=== PATIENT | female | born 1960 | race Two or more races ===

== ENCOUNTER 2017-05-06 11:33 | Emergency (ER) | payer MEDICAID ==
[~2017-05-06] VITALS: Ht 157.5 cm; Wt 59.0 kg
[2017-05-06 12:00] VITALS: BP 146/74
--- NOTE | 2017-05-06 12:24 | Emergency Room Report ---
History of Present Illness General Chief Complaint: Pain Source: Patient Present Illness HPI 56-year-old female presents to the emergency department complaining of 10 out of 10 in severity localized right-sided lower jaw pain progressive 3 days. Patient status post wisdom tooth extraction on Tuesday. Patient denies fevers or chills she reports she has been utilizing warm compresses HER symptoms become worse. Patient states she's been taking Advil and was given antibiotics prior to procedure. Patient states that she has a previous history of nerve pain on the right side of her jaw and was given carbamazepine in the past. Patient states that she still has some carbamazepine however she does not take it. Patient states that the dentist believe that her wisdom tooth is causing her right-sided mouth pain and recommended that she have tooth extraction. Patient states pain is exacerbated upon opening her mouth or after talking. Denies CP, Palpitations, LOC, AMS, dizziness, Changes in Vision, Sensation, paresthesias, or a sudden severe headache. Allergies: Coded Allergies: No Known Allergies (Unverified , 05/06/17) Patient History Past Medical History: see triage record Past Surgical History: none Pertinent Family History: none, unable to obtain Immunizations: UTD Reviewed Nursing Documentation: PMH: Agreed, PSxH: Agreed Nursing Documentation-PMH Past Medical History: No History, Except For Hx Hypertension: Yes Hx Asthma: Yes Review of Systems All Other Systems: negative except mentioned in HPI Physical Exam Vital Signs Date Time Temp Pulse Resp B/P (MAP) Pulse Ox O2 Delivery O2 Flow Rate FiO2 05/06/17 11:37 97.7 53 18 146/74 96 Room Air 97.7 Sp02 EP Interpretation: reviewed, normal General Appearance: alert, GCS 15, non-toxic, mild distress Head: normocephalic, atraumatic ENT: hearing grossly normal, normal voice, TMs + canals normal, uvula midline, moist mucus membranes, other - swelling to the the lower right jawline. right lower third molar has been extracted, no evidence of dry socket. Neck: full range of motion Respiratory: lungs clear, normal breath sounds, speaking full sentences Cardiovascular #1: regular rate, rhythm Musculoskeletal: back normal, gait/station normal, normal range of motion, non- tender Neurologic: alert, oriented x3, responsive, motor strength/tone normal, sensory intact, normal gait, speech normal, grossly normal Psychiatric: judgement/insight normal Skin: normal color, no rash, warm/dry, well hydrated Lymphatic: no adenopathy Medical Decision Making PA Attestation Dr. Branch is my supervising Physician whom patient management has been discussed with. Diagnostic Impression: Primary Impression: Pain, dental Additional Impression: S/P wisdom tooth extraction ER Course 56-year-old female presents to the emergency department complaining of 10 out of 10 in severity localized right-sided lower jaw pain progressive 3 days. Patient status post wisdom tooth extraction on Tuesday. Patient denies fevers or chills she reports she has been utilizing warm compresses HER symptoms become worse. Patient states she's been taking Advil and was given antibiotics prior to procedure. Patient states that she has a previous history of nerve pain on the right side of her jaw and was given carbamazepine in the past. Patient states that she still has some carbamazepine however she does not take it. Patient states that the dentist believe that her wisdom tooth is causing her right-sided mouth pain and recommended that she have tooth extraction. Patient states pain is exacerbated upon opening her mouth or after talking. Denies CP, Palpitations, LOC, AMS, dizziness, Changes in Vision, Sensation, paresthesias, or a sudden severe headache. Ddx considered but are not limited to cellulitis, dental abscess, orbital cellulitis, d/l tooth, dental pain. dry socket, trigeminal neuralgia, hematoma just to name a few. Vital signs: are WNL, pt. is afebrile H&PE are most consistent with right lower jaw soft tissue hematoma following tooth extraction. mild-moderate swelling noted. no bruising. no evidence of dry socket. ORDERS: none required at this time, the diagnosis is clinical ED INTERVENTIONS: None required at this time. -Percocet -Toradol DISCHARGE: At this time pt. is stable for d/c to home. Will provide printed patient care instructions, and any necessary prescriptions. Care plan and follow up instructions have been discussed with the patient prior to discharge. Last Vital Signs Date Time Temp Pulse Resp B/P (MAP) Pulse Ox O2 Delivery O2 Flow Rate FiO2 05/06/17 11:37 97.7 53 18 146/74 96 Room Air 97.7 Disposition: HOME, SELF-CARE Condition: Stable Scripts Amoxicillin/Potassium Clav 875-125* (AUGMENTIN 875-125 TABLET*) 1 Each Tablet 1 TAB ORAL TWICE A DAY for 7 Days, #14 TAB Prov: Melodie Lucas 05/06/17 Oxycodone/Acetaminophen 5-325* (PERCOCET 5-325 MG TABLET*) 1 Each Tablet 1 TAB ORAL Q6H Y for For Pain, #9 TAB 0 Refills Prov: Melodie Lucas 05/06/17 Patient Instructions: Dental Pain Additional Instructions: Take medications as directed. Follow up with a Dentist in 3 days, even if your symptoms have resolved. --Please review list of Dental clinics, if you do not already have a Dentist Return sooner to ED if new symptoms occur, or current symptoms become worse. Do not drink alcohol, drive, or operate heavy machinery while taking Tylenol # 3 as this may cause drowsiness. - Please note that this Emergency Department Report was dictated using [employer] software, occasionally this can lead to erroneous entry secondary to interpretation by the dictation equipment. Melodie Lucas May 06, 2017 12:23
[2017-05-06] MEDS ORDERED: oxyCODONE HCL/Acetaminophen 5/325mg ORAL ONE (12:30)
[2017-05-06] MEDS ORDERED: Ketorolac 60mg Inj IM ONE (12:30)
[2017-05-06] MEDS ORDERED: PERCOCET 5-3251 EACH ORAL (12:38)
[2017-05-06] MEDS ORDERED: AUGMENTIN 875-1 EAC1 ORAL (12:38)
[2017-05-06 13:05] VITALS: BP 146/74
== END 2017-05-06 13:55 | disposition home or self-care (01) ==
LOC: EMR 12:31
DX: K08.89 Other specified disorders of teeth and supporting structures (principal); I10 Essential (primary) hypertension; J45.909 Unspecified asthma, uncomplicated; Z98.818 Other dental procedure status
CPT/HCPCS: 96372; 99284

== ENCOUNTER 2019-03-23 14:16 | Emergency (ER) | payer MEDICAID ==
[~2019-03-23] VITALS: Ht 157.5 cm; Wt 58.1 kg
[~2019-03-23 14:16] MED LIST: AUGMENTIN 875-1 EAC1 ORAL; PERCOCET 5-3251 EACH ORAL
[2019-03-23 14:30] VITALS: BP 141/63
[2019-03-23] MEDS: Albuterol ud Inhalation HHN SCH ×3 (14:55→15:31)
[2019-03-23] MEDS: Ipratropium 0.02% Inh Soln 2.5ml UD HHN SCH ×3 (14:55→15:31)
[2019-03-23 15:04] LABS: BASOPHILS % (AUTO) 1.7 % (0.0-2.0); HEMATOCRIT 37.6 % (37.0-47.0); HEMOGLOBIN 12.6 G/DL (12.0-16.0); LYMPHOCYTES % (AUTO) 36.9 % (20.0-45.0); MEAN CORPUSCULAR VOLUME 83 FL (80-99); MONOCYTES % (AUTO) 6.5 % (1.0-10.0); PLATELET COUNT 171 K/UL (150-450); RED BLOOD COUNT 4.51 M/UL (4.20-5.40); RED CELL DISTRIBUTION WIDTH 12.7 % (11.6-14.8); WHITE BLOOD COUNT 6.1 K/UL (4.8-10.8)
[2019-03-23 15:07] LABS: APPEARANCE,URINE CLEAR; BILIRUBIN, URINE NEGATIVE (NEGATIVE); COLOR,URINE PALE YELLOW; GLUCOSE, URINE (UA) NEGATIVE (NEGATIVE); KETONES,URINE NEGATIVE (NEGATIVE); LEUKOCYTE ESTERASE ,URINE NEGATIVE (NEGATIVE); NITRITE,URINE NEGATIVE (NEGATIVE); PH,URINE 6.5 (4.5-8.0); PROTEIN,URINE NEGATIVE (NEGATIVE); UROBILINOGEN,URINE NORMAL MG/DL (0.0-1.0)
[2019-03-23 15:08] LABS: INR 1.3 (0.9-1.1)
[2019-03-23 15:30] LABS: ANION GAP 7 mmol/L (5-15); BLOOD UREA NITROGEN 14 mg/dL (7-18); CALCIUM 8.8 MG/DL (8.5-10.1); CARBON DIOXIDE 29 MMOL/L (21-32); CHLORIDE 109 MMOL/L (98-107); CREATININE 0.7 MG/DL (0.55-1.30); POTASSIUM 3.8 MMOL/L (3.5-5.1); SODIUM 145 MMOL/L (136-145)
--- NOTE | 2019-03-23 15:37 | Diagnostic Imaging Report ---
Indication: Dyspnea Comparison: None A single view chest radiograph was obtained. Findings: The lungs are hyperexpanded. Only vascularity is mildly prominent. Heart is mildly enlarged. There are osteophytes throughout the thoracic spine. Bones are osteopenic. IMPRESSION: Mild pulmonary vascular congestion suspected.
[2019-03-23 15:41] LABS: ALANINE AMINOTRANSFERASE 44 U/L (12-78); ALBUMIN 3.6 G/DL (3.4-5.0); ALKALINE PHOSPHATASE 79 U/L (46-116); ASPARTATE AMINO TRANSFERASE 34 U/L (15-37); BILIRUBIN,TOTAL 0.4 MG/DL (0.2-1.0)
[2019-03-23 16:30] VITALS: BP 137/53
--- NOTE | 2019-03-23 16:38 | Emergency Room Report ---
History of Present Illness General Chief Complaint: Chest Pain Source: Patient Present Illness HPI 58-year-old female with history of asthma here complaining of 1 week of asthma exacerbation, wheezing, shortness of breath. Reports that she has been coughing for 1 month after coming back from [place]. Denies fever and chills, sore throat, no other URI symptoms. Complains of minimal chest pain without radiation x2 days. Denies headache and dizziness, blurry vision. Denies unilateral and generalized weakness. Denies cardiac history. Denies tobacco smoke, marijuana use, vaping. Has not taken medication for symptom relief as reports that does not have her inhaler. Allergies: Coded Allergies: No Known Allergies (Unverified , 05/06/17) Patient History Past Medical History: see triage record, asthma Past Surgical History: unable to obtain Pertinent Family History: none Now: No Immunizations: UTD Reviewed Nursing Documentation: PMH: Agreed; PSxH: Agreed Nursing Documentation-PMH Past Medical History: No History, Except For Hx Hypertension: Yes - HIGH CHOLESTEROL Hx Asthma: Yes Review of Systems All Other Systems: negative except mentioned in HPI Physical Exam Vital Signs Date Time Temp Pulse Resp B/P (MAP) Pulse Ox O2 Delivery O2 Flow Rate FiO2 03/23/19 14:23 97.0 56 15 141/63 (89) 99 Room Air 03/23/19 14:56 21 Sp02 EP Interpretation: reviewed, normal General Appearance: no apparent distress, alert, GCS 15, non-toxic Head: normocephalic, atraumatic Eyes: bilateral eye normal inspection, bilateral eye PERRL ENT: hearing grossly normal, normal pharynx, no angioedema, normal voice Neck: full range of motion, supple/symm/no masses Respiratory: chest non-tender, no rhonchi, no respiratory distress, no retraction, no accessory muscle use, wheezing Cardiovascular #1: regular rate, rhythm, no edema, no murmur Gastrointestinal: non tender, soft Rectal: deferred Genitourinary: no CVA tenderness Musculoskeletal: back normal, no calf tenderness Neurologic: alert, motor strength/tone normal, oriented x3, sensory intact, responsive, speech normal Psychiatric: judgement/insight normal, memory normal, mood/affect normal, no suicidal/homicidal ideation Skin: no rash Lymphatic: no adenopathy Medical Decision Making PA Attestation All my diagnosis and treatment plans were reviewed ad discussed with my supervising physician Dr. Roblero Diagnostic Impression: Primary Impression: Pneumonitis Additional Impression: Asthma exacerbation ER Course 57-year-old female with history of asthma here complaining of 1 week of asthma exacerbation, wheezing, shortness of breath. Reports that she has been coughing for 1 month after coming back from [place]. Denies fever and chills, sore throat, no other URI symptoms. Complains of minimal chest pain without radiation x2 days. Denies headache and dizziness, blurry vision. Denies unilateral and generalized weakness. Denies cardiac history. Denies tobacco smoke, marijuana use, vaping. Has not taken medication for symptom relief as reports that does not have her inhaler. Ddx considered but are not limited to: bronchitis, PNA, URI viral, bacterial bronchitis, pneumonitis, asthma exacerbation Vital signs: are WNL, pt. is afebrile H&PE are most consistent with: Pneumonitis, asthma exacerbation ORDERS: Chest pain order set, prednisone, albuterol, Augmentin, guaifenesin ED INTERVENTIONS: Prednisone, 3 treatments of albuterol ipratropium nebulizer DISCHARGE: At this time pt. is stable for d/c to home. Will provide printed patient care instructions, and any necessary prescriptions. Care plan and follow up instructions have been discussed with the patient prior to discharge. Take medication as directed, follow-up with your primary care provider, you may need to be sent to [facility] as well as [facility], if worsening symptoms return to the emergency room EKG Diagnostic Results Rate: bradycardiac Rhythm: other - Bradycardia ST Segments: no acute changes Other Impression No acute ST changes Chest X-Ray Diagnostic Results Chest X-Ray Diagnostic Results : Chest X-Ray Ordered: Yes Indication: Shortness of Breath EP Interpretation: Yes PA Xray: Interpretation reviewed, by supervising MD, and agrees with findings. Interpretation: no consolidation, no effusion, no pneumothorax Impression: No acute disease Electronically Signed by: Charlene Javier PA-C Last Vital Signs Date Time Temp Pulse Resp B/P (MAP) Pulse Ox O2 Delivery O2 Flow Rate FiO2 03/23/19 15:31 62 16 100 Room Air 21 03/23/19 14:30 97.0 141/63 Disposition: HOME, SELF-CARE Condition: Stable Scripts Prednisone* (PREDNISONE*) 20 Mg Tablet 40 MG ORAL DAILY for 5 Days, #10 TAB Prov: Charlene Lamas 03/23/19 Amoxicillin/Potassium Clav 875-125* (AUGMENTIN 875-125 TABLET*) 1 Each Tablet 1 TAB ORAL TWICE A DAY for 10 Days, #20 TAB Prov: Charlene Lamas 03/23/19 Albuterol Sulfate (VENTOLIN HFA) 18 Gm Hfa.aer.ad 2 PUFFS INH EVERY 6 HOURS, #18 GM 0 Refills Prov: Charlene Lamas 03/23/19 Guaifenesin* (GUAIFENESIN*) 100 Mg/5 Ml Liquid 5 ML ORAL Q8H, #120 ML 0 Refills Prov: Charlene Lamas 03/23/19 Patient Instructions: Asthma, Adult, [id number], Nonspecific Chest Pain, Pneumonitis Additional Instructions: Take medication as directed, follow-up with primary care provider, if worsening symptoms return to emergency room Charlene Lamas Mar 23, 2019 16:38
[2019-03-23] MEDS ORDERED: GUAIFENESI100 MG/5 M ORAL (16:39)
[2019-03-23] MEDS ORDERED: AUGMENTIN 875-1 EAC1 ORAL (16:39)
[2019-03-23] MEDS ORDERED: VENTOLIN HFA18 GM INH (16:39)
[2019-03-23] MEDS ORDERED: PREDNISONE20 MG ORAL (16:39)
[2019-03-23 16:54] VITALS: BP 136/62
== END 2019-03-23 16:54 | disposition home or self-care (01) ==
LOC: EMR 16:00
DX: J18.9 Pneumonia, unspecified organism (principal); J45.901 Unspecified asthma with (acute) exacerbation; I10 Essential (primary) hypertension; E78.00 Pure hypercholesterolemia, unspecified
CPT/HCPCS: 36415; 71045; 80053; 80307; 81003; 83880; 84484; 85025; 85610; 85730; 93005; J7512; Z7502; 99284